=== PATIENT | male | born 1960 | race Caucasian/White ===

== ENCOUNTER 2019-03-09 12:17 | Inpatient (IN) ==
--- NOTE | 2019-03-09 12:24 | Emergency Department Note ---
ED Disposition Clinical Impression: Healthcare-associated pneumonia, Empyema Sepsis Qualifiers: Sepsis type: sepsis due to unspecified organism Sepsis acute organ dysfunction status: with acute organ dysfunction Severe sepsis acute organ dysfunction type: acute respiratory failure Acute respiratory failure type: unspecified Severe sepsis shock status: with septic shock Qualified Code(s): A41.9 - Sepsis, unspecified organism Acute respiratory failure Qualifiers: Respiratory failure complication: hypoxia and hypercapnia Qualified Code(s): J96.01 - Acute respiratory failure with hypoxia Disposition: Admitted As Inpatient Condition on Discharge: Critical - Critical Care Critical Care Time: Yes Attestation: On , the high probability of a clinically significant, sudden or life threatening deterioration of the following system(s) required my full and direct attention, intervention and personal management. The time I documented below is in addition to time spent performing reported procedures but includes the following listed in this critical care notation. Total Critical Care Time: 60 Vital system(s) involved:: Respiratory Failure, Shock (Septic) My critical care processes included: Assessment & monitoring of V/S, Initial and Re-exams, Data Review/Interpretation, Coordinating Care, Medication Orders and management, Documentation Medical Decision Making - Donn Inquiry Pt receiving controlled substance: No Vital Signs: 03/09/19 12:17 03/09/19 13:00 03/09/19 13:30 Temperature 97.7 F 99.6 F Temperature Source Oral Rectal Pulse Rate [Right] 147 H 150 H 145 H Respiratory Rate 26 H 30 H 25 H Blood Pressure [Right Arm] 136/46 L 132/93 H 118/86 Blood Pressure Mean [Right Arm] 76 106 96 Blood Pressure Source [Right Arm] Blood Pressure Position [Right Arm] 02 Sat by Pulse Oximetry 70 L 88 L 90 L Oxygen Delivery Method Room Air Nasal Cannula Non-Rebreather Oxygen Flow Rate (LPM) 3 03/09/19 13:51 03/09/19 14:01 03/09/19 14:23 Temperature Temperature Source Pulse Rate [Right] 142 H 137 H 128 H Respiratory Rate 22 Blood Pressure [Right Arm] 105/74 L 106/69 L 109/75 L Blood Pressure Mean [Right Arm] 84 81 86 Blood Pressure Source [Right Arm] Automatic Cuff Automatic Cuff Blood Pressure Position [Right Arm] Sitting Sitting 02 Sat by Pulse Oximetry 97 97 99 Oxygen Delivery Method BiPAP Room Air BiPAP Oxygen Flow Rate (LPM) 03/09/19 14:41 03/09/19 14:58 03/09/19 15:34 Temperature Temperature Source Pulse Rate [Right] 122 H 118 H 108 H Respiratory Rate 18 Blood Pressure [Right Arm] 125/71 95/63 L 100/64 L Blood Pressure Mean [Right Arm] 89 73 76 Blood Pressure Source [Right Arm] Automatic Cuff Automatic Cuff Blood Pressure Position [Right Arm] Sitting Sitting 02 Sat by Pulse Oximetry 99 98 100 Oxygen Delivery Method BiPAP BiPAP BiPAP Oxygen Flow Rate (LPM) 03/09/19 16:00 03/09/19 16:30 03/09/19 17:00 Temperature Temperature Source Pulse Rate [Right] 111 H 114 H 114 H Respiratory Rate 20 Blood Pressure [Right Arm] 98/67 L 83/58 L 93/57 L Blood Pressure Mean [Right Arm] 77 66 69 Blood Pressure Source [Right Arm] Automatic Cuff Blood Pressure Position [Right Arm] Sitting Sitting 02 Sat by Pulse Oximetry 99 98 99 Oxygen Delivery Method BiPAP Room Air BiPAP Oxygen Flow Rate (LPM) - Lab Data Lab Results 03/09/19 12:25: WBC 26.9 H*, RBC 5.51, Hgb 15.5, Hct 54.0 H, MCV 98.1 H, MCH 28.1, MCHC 28.7 L, RDW 16.3, Plt Count 474 H, MPV 8.8, Neut % (Auto) 89.2 H, Lymph % (Auto) 7.9 L, [place] % (Auto) 2.3, Eos % (Auto) 0.1, Baso % (Auto) 0.6, Neut # (Auto) 24.3 H, Lymph # (Auto) 2.1, [place] # (Auto) 0.6, Eos # (Auto) 0.0, Baso # (Auto) 0.2, Total Counted 100, Neutrophils % (Manual) 82 H, Band Neutrophils % 8.0, Lymphocytes % (Manual) 6 L, Monocytes % (Manual) 4, Platelet Estimate Slight increase, Anisocytosis 1+, Acanthocytes (Spur) 1+ 03/09/19 12:25: Sodium 141, Potassium 3.5, Chloride 98, Carbon Dioxide 24, Anion Gap 22.5 H, BUN 13, Creatinine 1.17, Estimated Creat Clear 82, Estimated GFR 64, Est GFR ( Amer) 77, Glucose 209 H, Calcium 9.3, Total Bilirubin 1.3 H, Direct Bilirubin 0.7 H, Indirect Bilirubin 0.6, AST 18, ALT 28, Alkaline Phosphatase 256 H, Troponin I 0.04, Total Protein 8.6 H, Albumin 2.0 L 03/09/19 12:25: Lactate 10.7 H 03/09/19 12:25: B-Natriuretic Peptide 3210 H 03/09/19 12:25: Influenza Type A Ag Negative, Influenza Type B Ag Negative 03/09/19 12:28: Specimen Source Left radial, O2 % 3l, ABG pH 7.18 L*, ABG pCO2 54.6 H, ABG pO2 58.7 L, ABG HCO3 20.0 L, ABG Total CO2 21.7 L, ABG O2 Saturation 82 L*, ABG Base Excess -8.3 L, Andry Test Acceptable 03/09/19 15:55: Troponin I 0.21 H Result diagrams: 03/09/19 12:25 03/09/19 12:25 Orders (Tests/Meds): ED MEDICATIONS Generic Name Dose Route Start Last Admin Trade Name Freq PRN Reason Stop Dose Admin Acetaminophen 650 mg 03/09/19 17:21 Acetaminophen 325mg Tab PO 04/08/19 17:20 Q4HP PRN As Needed for Fever or Pain Aspirin 81 mg 03/10/19 09:00 Aspirin 81mg Chewable Tablet PO 04/09/19 08:59 DAILY [facility] Cefepime HCl 2 gm/ Sodium 100 mls @ 200 mls/hr 03/09/19 21:00 Chloride IV 03/23/19 12:59 Q8H [facility] Protocol Levofloxacin/Dextrose 750 mg in 150 mls @ 100 mls/hr 03/10/19 13:00 Levofloxacin 750mg/150ml Premix IV 03/23/19 12:59 Q24H [facility] Protocol Vancomycin HCl 1,500 mg/ 250 mls @ 125 mls/hr 03/10/19 03:00 Sodium Chloride IV 03/23/19 14:59 Q12H [facility] Miscellaneous 1 each 03/09/19 17:21 Vancomycin Consult Request * 04/08/19 12:59 CONSULT PHARMACY [facility] Non-Formulary Medication 20 mg 03/10/19 09:00 Rivaroxaban [Xarelto 20mg Tablet*] PO 04/09/19 08:59 DAILY [facility] Non-Formulary Medication 40 mg 03/10/19 09:00 Valsartan [Valsartan 40mg Tablets] PO 04/09/19 08:59 DAILY [facility] Non-Formulary Medication 80 mg 03/09/19 21:00 Atorvastatin Calcium [Atorvastatin 80mg Tab] PO 04/08/19 20:59 HS [facility] Ondansetron HCl 4 mg 03/09/19 17:21 Zofran 4mg/2ml Vial IV 04/08/19 17:20 Q8HP PRN Nausea Discontinued Medications Generic Name Dose Route Start Last Admin Trade Name Freq PRN Reason Stop Dose Admin Sodium Chloride 1,000 mls @ 999 mls/hr 03/09/19 12:30 03/09/19 13:00 Sod Chlor 0.9% 1000ml Bag IV 03/09/19 13:30 Not Given .Q1H1M [facility] Cefepime HCl 2 gm/ Sodium 100 mls @ 200 mls/hr 03/09/19 13:00 03/09/19 13:58 Chloride IV 03/23/19 12:59 200 mls/hr Q8H [facility] Administration Protocol Levofloxacin/Dextrose 750 mg in 150 mls @ 100 mls/hr 03/09/19 13:00 03/09/19 12:54 Levofloxacin 750mg/150ml Premix IV 03/23/19 12:59 100 mls/hr Q24H [facility] Administration Protocol Vancomycin HCl 1,500 mg/ 250 mls @ 125 mls/hr 03/09/19 15:00 03/09/19 15:10 Sodium Chloride IV 03/23/19 14:59 Not Given Q12H [facility] Sodium Chloride 2,590 mls @ 1,295 mls/hr 03/09/19 12:59 03/09/19 13:01 Sod Chlor 0.9% 1000ml Bag 30 ml/kg infuse over 2 hr (2590 ml) 03/09/19 14:58 1,295 mls/hr IV Administration .Q2H ONE Ioversol 70 ml 03/09/19 13:43 03/09/19 13:44 Rad-Optiray 350 100ml Vial IV 03/09/19 13:44 70 ml ONCE ONE Administration Protocol Methylprednisolone Sodium Succinate 125 mg 03/09/19 12:20 03/09/19 12:34 Solu-Medrol 125mg/2ml Vial IV 03/09/19 12:21 125 mg ONCE ONE Administration Miscellaneous 1 each 03/09/19 13:00 03/09/19 13:58 Vancomycin Consult Request * 04/08/19 12:59 1 each CONSULT PHARMACY [facility] Administration Sodium Chloride 50 ml 03/09/19 13:43 03/09/19 13:44 Rad-Ns 50ml Vial IV 03/09/19 13:44 50 ml ONCE ONE Administration Sodium Chloride 10 ml 03/09/19 13:43 03/09/19 13:44 Rad-Saline Flush 10ml Syringe IV 03/09/19 13:44 10 ml ONCE ONE Administration ORDERS Category Date Time Status Consult to Cardiology [CONS] Routine Cons 03/09/19 17:21 Active Basic Metabolic Panel AMLAB Lab 03/10/19 06:00 Ordered Complete Blood Count Auto Diff AMLAB Lab 03/10/19 06:00 Ordered Lactic Acid Follow Up (RFLX 1) Stat Lab 03/09/19 16:55 Received Troponin I Q3H Lab 03/09/19 18:30 Ordered Blood Culture Stat Micro 03/09/19 12:25 Received ABG PH Stat RT 03/09/19 13:14 Ordered Arterial Blood Gas Timed RT 03/09/19 21:00 Ordered CA echo doppler complete Routine Y 03/10/19 07:00 Ordered - Radiology Data #1 Image(s): Chest Image Reviewed: Yes I discussed the image results w/the radiologist Pneumonia in the left lung. Elevated right diaphragm, chronic, but worse than previous. Air density at the right diaphragm, unclear cause. Recommends CT chest, preferably CT angiogram if renal function will allow, otherwise CT chest without contrast. - ECG Data Tracing #1 EKG interpreted by Milton Cerda MD: Rhythm: sinus tachycardia Rate: 148 [place]: normal Ectopy: none Conduction: Incomplete right bundle branch block ST Segment Changes: Nonspecific T Wave Changes: none Q Waves: none No evidence of acute ischemia or injury - Physician Consults Physician Consulted: Abel - ICU at Time: 14:10 Reason -: Transfer to another facilty Comment/Response: No ICU beds available. Emergency department on diversion. Additional Consult: Calos - hospitalist [facility] Time: 14:34 Reason -: Transfer to another facilty Comment/Response: Feels patient is too complicated for their facility. [facility] ICU is full, they will put him on the wait list. Additional Consult: Chicho - ICU [facility] Time: 14:41 Reason -: Transfer to another facilty Comment/Response: Accepts patient, will be put on ICU waiting list. Other Consultation(s): Pantera - industrial custodian Stefano, states does not believe in wait-listing. Call back later to check on beds. Arlette . Accepts patient to wait list for ICU. - Reevaluation(s) Time: 13:55 Reevaluation #1: Patient feels better on BiPAP, respirations much easier. - Tissue Perfus/Sepsis Re-Eval Sepsis Re-Evaluation Performed: Yes Date Performed: 03/09/19 Time Performed: 15:55 Medical Decision Narrative: Family prefers for patient be transferred back to the [facility] if possible. [facility] contacted. They have no available beds. 4:25 PM: Unable to find a bed in [place] at a higher level of care. Wait lists at , [facility], and [place] all appear long and it may be quite some time before he gets a bed to be transferred. Discussed with Dr. Ahuja, who is on-call for service. He will admit the patient here pending transfer. Requests repeat arterial blood gas at 9 PM. Continue antibiotics. General Adult HPI - General Chief complaint: Chest Pain Stated complaint: soa, chest pain Time Seen by Provider: 03/09/19 12:30 - History of Present Illness HPI narrative: Complains of shortness of breath since last night. Has a cough without sputum production. Has anterior chest pain since last night. Swelling of both legs, left worse than right, which is chronic, but worsening. Not aware of any fever. Recently I admitted him from here to the [facility] in December for DVT and pulmonary emboli. He was discharged from that admission but says that he had to get readmitted for shortness of breath. Family says that he had pneumonia and congestive heart failure. It sounds as if he had to have a chest tube to drain a pleural effusion. He was discharged 2 to 3 weeks ago. Family states he is not eating and drinking well. Also states that he stopped taking his Lasix about a week ago because "he got tired of peeing on himself". - Related Data Home Medications Medication Instructions Recorded Confirmed Aspirin [Aspirin 81mg chewable 81 mg PO DAILY 03/09/19 03/09/19 tab] Atorvastatin Calcium [Atorvastatin 80 mg PO HS 03/09/19 03/09/19 80mg Tab] Furosemide [Lasix 40mg tab] 40 mg PO BID 03/09/19 03/09/19 Metoprolol Tartrate [Lopressor 50 mg PO BID 03/09/19 03/09/19 50mg tablet] Potassium Chloride [Micro-K 10mEq 10 meq PO BID 03/09/19 03/09/19 cap] Rivaroxaban [Xarelto 20mg Tablet*] 20 mg PO DAILY 03/09/19 03/09/19 Sennosides/Docusate Sodium 1 each PO NEEDED PRN 03/09/19 03/09/19 [Senna-S Laxative Tablet] Valsartan [Valsartan 40mg 40 mg PO DAILY 03/09/19 03/09/19 Tablets] Allergies Allergy/AdvReac Type Severity Reaction Status Date / Time No Known Allergies Allergy Verified 05/05/18 09:25 [facility] History - Hepatitis A Screen Attestation statement:: This patient has been screened for Hepatitis A risk factors. Medical History: Reports:: Diabetes Mellitus Type 2 Laterality Cases: Bilateral: Tonsillectomy - Social History Smoking Status: Current every day smoker Tobacco Type: cigarettes # Packs/Day (cigarettes): 1 Alcohol Intake: never Occupational Status: retired ROS Obtained: Yes All systems reviewed & no additional complaints - Constitutional Constitutional: Denies fever(s) - Cardiovascular Cardiovascular: Reports chest pain, Reports pedal edema - Respiratory Respiratory: Yes cough, Yes non-productive cough, Yes dyspnea Physical Exam - General General appearance: alert, in distress (Respiratory) - Head Head exam: atraumatic, normocephalic - Eye Eye exam: Present: normal appearance, EOMI - ENT ENT exam: Present: mucous membranes moist - Neck Neck exam: Present: normal inspection, trachea midline - Chest Chest inspection: Present: normal inspection - Respiratory Respiratory exam: Present: respiratory distress, accessory muscle use, other (Audible crackles) - Cardiovascular Cardiovascular exam: Present: normal rhythm, tachycardia - Abdominal Exam Abdominal exam: Present: soft. Absent: distention, tenderness - Extremities Exam Extremities exam: Present: normal capillary refill, other (2+ pitting edema left lower leg, 1+ pitting edema right) - Neurological Exam Neurological exam: Present: alert - Psychiatric Psychiatric exam: Present: anxious - Skin Skin exam: Present: warm, dry
[2019-03-09 12:32] LABS: ABG Base Excess -8.3 mmol/L (-2.4-2.3); ABG Oxygen Saturation 82 % (90-100); ABG PO2 58.7 mmhg (80-100); ABG TCO2 21.7 mmhg (23-27)
[2019-03-09 12:35] LABS: Allen's Test ACCEPTABLE; Oxygen 3l %
[2019-03-09 12:36] LABS: ABG PCO2 54.6 mmhg (35.0-45.0); ABG PH 7.18 mmol/L (7.35-7.45)
[2019-03-09 12:39] LABS: Basophils # 0.2 K/mm3 (0-0.2); Basophils % 0.6 % (0.1-2.0); Eosinophils % 0.1 % (0.1-12.0); Hemoglobin 15.5 g/dL (14.1-18.0); Lymphocytes # 2.1 K/mm3 (0.7-4.5); Lymphocytes % 7.9 % (10-50); Mean Corpuscular HGB Conc 28.7 g/dL (31.8-35.4); Mean Corpuscular Volume 98.1 fl (80-94); Mean Platelet Volume 8.8 fl (7.4-10.4); Monocytes # 0.6 K/mm3 (0.1-1.0); Monocytes % 2.3 % (1.7-9.3); Neutrophils # 24.3 K/mm3 (1.8-7.8); Neutrophils % 89.2 % (37.0-80.0); Platelet Count 474 K/mm3 (142-424); Red Blood Count 5.51 M/mm3 (4.60-6.20); Red Cell Distribution Width 16.3 % (11.5-17.5)
[2019-03-09 12:45] LABS: White Blood Count 26.9 K/mm3 (4.8-10.8)
[2019-03-09 12:50] LABS: Lymphocytes % 6 % (10-50); Monocytes % 4 % (2-9); Neutrophils % 82 % (42-76); Total Cells Counted 100
[2019-03-09 12:51] LABS: Anisocytosis 1+
[2019-03-09 12:53] LABS: Anion Gap 22.5 mEq/L (5-15); Bilirubin,Direct 0.7 mg/dL (0.0-0.2); Bilirubin,Indirect 0.6 mg/dL (0.0-0.9); Bilirubin,Total 1.3 mg/dL (0.2-1.0); Calcium 9.3 mg/dL (8.5-10.1); Total Protein,Serum 8.6 gm/dL (6.4-8.2)
--- NOTE | 2019-03-09 14:10 | Electrocardiograph Report ---
APPROVED REPORT Exam: Resting ECG HR:148 bpm ECG Measurements Heart Rate 148 AXES SC 124 P 44 QRSd 104 QRS 135 QT 274 T36 QTc 430 <Conclusion> Sinus tachycardia Possible Left atrial enlargement Lateral infarct, age undetermined Abnormal ECG Electronically signed by : Balta Borjas, 03/09/2019 14:09:47
[2019-03-09 20:25] LABS: ABG Base Excess -2.2 mmol/L (-2.4-2.3); ABG HCO3 22.3 mmhg (22.0-26.0); ABG Oxygen Saturation 99 % (90-100); ABG PCO2 35.4 mmhg (35.0-45.0); ABG PH 7.42 mmol/L (7.35-7.45); ABG PO2 164.7 mmhg (80-100); ABG TCO2 23.4 mmhg (23-27)
[2019-03-09 20:26] LABS: Allen's Test Y; Oxygen 90 %
--- NOTE | 2019-03-09 21:03 | H&P/Discharge Summary ---
General - General Admission date:: 03/09/19 Discharge date: 03/10/19 *Admission Date: 03/09/19 *Chief complaint: sob *History of present illness: this wm presented to the ed with sob-mplains of shortness of breath since last night. Has a cough without sputum production. Has anterior chest pain since last night. Swelling of both legs, left worse than right, which is chronic, but worsening. Not aware of any fever. Recently I admitted him from here to the in December for DVT and pulmonary emboli. He was discharged from that admission but says that he had to get readmitted for shortness of breath. Family says that he had pneumonia and congestive heart failure. It sounds as if he had to have a chest tube to drain a pleural effusion. He was discharged 2 to 3 weeks ago. Family states he is no t eating and drinking well. Also states that he stopped taking his Lasix about a week ago because "he got tired of peeing on himself". pt with hcap and severe sepsis with organ dysfunction with septic shock- pt was admitted with ivf and abx with cpap [facility] History I have reviewed the patient's past medical history: Yes Medical History: Reports:: Diabetes Mellitus Type 2 *Have you ever received a pneumonia vaccine?: No *Have you received a flu vaccine this season?: Yes Laterality Cases: Bilateral: Tonsillectomy - *Social History Smoking Status: Current every day smoker Tobacco Type: cigarettes # Packs/Day (cigarettes): 1 Alcohol Intake: never *Occupational Status:: retired *Travel in the last 8 weeks: None Family Hx:: Unable to obtain Review of Systems - Review of Systems Review of systems:: pertinent systems reviewed and negative unless documented below - Constitutional Reports weakness, Denies fever(s) - Eyes Denies change in vision - ENT Reports dry mouth - *Cardiovascular Reports shortness of breath, Denies chest pain with activity - *Respiratory Reports cough, Denies coughing up blood - *Gastrointestinal Denies abdominal pain, Denies vomiting - *Genitourinary Denies blood in urine - *Musculoskeletal Denies joint pain, Denies neck pain - Integumentary/Breasts Denies rash - *Neurologic Denies seizure-like activity - Psychiatric Denies anxiety Exam Vital signs and Labs for Last 24 Hours: Temp Pulse Resp BP Pulse Ox 97.7 F 113 H 28 H 116/76 95 03/09/19 20:35 03/09/19 20:35 03/09/19 20:35 03/09/19 20:35 03/09/19 20:35 Laboratory Results - last 24 hr 03/09/19 12:25: WBC 26.9 H*, RBC 5.51, Hgb 15.5, Hct 54.0 H, MCV 98.1 H, MCH 28.1, MCHC 28.7 L, RDW 16.3, Plt Count 474 H, MPV 8.8, Neut % (Auto) 89.2 H, Lymph % (Auto) 7.9 L, Lea % (Auto) 2.3, Eos % (Auto) 0.1, Baso % (Auto) 0.6, Neut # (Auto) 24.3 H, Lymph # (Auto) 2.1, Lea # (Auto) 0.6, Eos # (Auto) 0.0, Baso # (Auto) 0.2, Total Counted 100, Neutrophils % (Manual) 82 H, Band Neutrophils % 8.0, Lymphocytes % (Manual) 6 L, Monocytes % (Manual) 4, Platelet Estimate Slight increase, Anisocytosis 1+, Acanthocytes (Spur) 1+ 03/09/19 12:25: Sodium 141, Potassium 3.5, Chloride 98, Carbon Dioxide 24, Anion Gap 22.5 H, BUN 13, Creatinine 1.17, Estimated Creat Clear 82, Estimated GFR 64, Est GFR ( Amer) 77, Glucose 209 H, Calcium 9.3, Total Bilirubin 1.3 H, Direct Bilirubin 0.7 H, Indirect Bilirubin 0.6, AST 18, ALT 28, Alkaline Phosphatase 256 H, Troponin I 0.04, Total Protein 8.6 H, Albumin 2.0 L 03/09/19 12:25: Lactate 10.7 H 03/09/19 12:25: B-Natriuretic Peptide 3210 H 03/09/19 12:25: Influenza Type A Ag Negative, Influenza Type B Ag Negative 03/09/19 12:28: Specimen Source Left radial, O2 % 3l, ABG pH 7.18 L*, ABG pCO2 54.6 H, ABG pO2 58.7 L, ABG HCO3 20.0 L, ABG Total CO2 21.7 L, ABG O2 Saturation 82 L*, ABG Base Excess -8.3 L, Andry Test Acceptable 03/09/19 15:55: Troponin I 0.21 H 03/09/19 16:55: Lactate 3.6 H 03/09/19 18:40: Troponin I 0.61 H 03/09/19 19:10: Lactate 2.9 H 03/09/19 20:24: Specimen Source R/r, O2 % 90, ABG pH 7.42, ABG pCO2 35.4, ABG pO2 164.7 H, ABG HCO3 22.3, ABG Total CO2 23.4, ABG O2 Saturation 99, ABG Base Excess -2.2, Andry Test Y, Vent Rate 22 I & O for Last 24 hours: Intake & Output 03/07/19 03/08/19 03/09/19 03/10/19 11:59 11:59 11:59 11:59 Intake Total 3554 / 3554 Output Total 285 / 285 Balance 3269 / 3269 Weight 178 lb - Constitutional no acute distress, thin - *Routine HEENT Exam Head: Present: normocephalic Eye: Present: EOMI, PERRL ENT: Present: mucous membranes dry - *Routine Neck Exam Absent: JVD - *Routine Respiratory Exam Present: decreased breath sounds, rhonchi - *Routine Cardiovascular Exam Present: RRR, murmur, S4 - *Routine Abdominal Exam Present: soft - *Routine Extremities Exam Absent: calf tenderness - *Routine Skin Exam Present: intact - *Routine Neurological Exam Present: alert, oriented X3, CN II-XII intact - Routine Psychiatric Exam Present: unable to assess Hospital Course Hospital Course: pt has did better with ivf and pressor with abx and cpap - repeat abg was improved and responded to fluids - pt will need transfer to [facility] to sig illness - he does get care [place] but no beds were available - he had elevated troponin but no acute ekg changes - pt had did well and was tiring with required cpap and increased rr - discussed with hospalist [facility] and will transfer by air and will need intubation by air care Results Labs on day of discharge: Labs from last 24 hours 03/09/19 03/09/19 03/09/19 20:24 19:10 18:40 WBC RBC Hgb Hct MCV MCH MCHC RDW Plt Count MPV Neut % (Auto) Lymph % (Auto) Lea % (Auto) Eos % (Auto) Baso % (Auto) Neut # (Auto) Lymph # (Auto) Lea # (Auto) Eos # (Auto) Baso # (Auto) Total Counted Neutrophils % (Manual) Band Neutrophils % Lymphocytes % (Manual) Monocytes % (Manual) Platelet Estimate Anisocytosis Acanthocytes (Spur) Specimen Source R/r O2 % 90 ABG pH 7.42 ABG pCO2 35.4 ABG pO2 164.7 H ABG HCO3 22.3 ABG Total CO2 23.4 ABG O2 Saturation 99 ABG Base Excess -2.2 Andry Test Y Vent Rate 22 Sodium Potassium Chloride Carbon Dioxide Anion Gap BUN Creatinine Estimated Creat Clear Estimated GFR Est GFR ( Amer) Glucose Lactate 2.9 H Calcium Total Bilirubin Direct Bilirubin Indirect Bilirubin AST ALT Alkaline Phosphatase Troponin I 0.61 H B-Natriuretic Peptide Total Protein Albumin Influenza Type A Ag Influenza Type B Ag 03/09/19 03/09/19 03/09/19 16:55 15:55 12:28 WBC RBC Hgb Hct MCV MCH MCHC RDW Plt Count MPV Neut % (Auto) Lymph % (Auto) Lea % (Auto) Eos % (Auto) Baso % (Auto) Neut # (Auto) Lymph # (Auto) Lea # (Auto) Eos # (Auto) Baso # (Auto) Total Counted Neutrophils % (Manual) Band Neutrophils % Lymphocytes % (Manual) Monocytes % (Manual) Platelet Estimate Anisocytosis Acanthocytes (Spur) Specimen Source Left radial O2 % 3l ABG pH 7.18 L* ABG pCO2 54.6 H ABG pO2 58.7 L ABG HCO3 20.0 L ABG Total CO2 21.7 L ABG O2 Saturation 82 L* ABG Base Excess -8.3 L Andry Test Acceptable Vent Rate Sodium Potassium Chloride Carbon Dioxide Anion Gap BUN Creatinine Estimated Creat Clear Estimated GFR Est GFR ( Amer) Glucose Lactate 3.6 H Calcium Total Bilirubin Direct Bilirubin Indirect Bilirubin AST ALT Alkaline Phosphatase Troponin I 0.21 H B-Natriuretic Peptide Total Protein Albumin Influenza Type A Ag Influenza Type B Ag 03/09/19 03/09/19 03/09/19 12:25 12:25 12:25 WBC RBC Hgb Hct MCV MCH MCHC RDW Plt Count MPV Neut % (Auto) Lymph % (Auto) Lea % (Auto) Eos % (Auto) Baso % (Auto) Neut # (Auto) Lymph # (Auto) Lea # (Auto) Eos # (Auto) Baso # (Auto) Total Counted Neutrophils % (Manual) Band Neutrophils % Lymphocytes % (Manual) Monocytes % (Manual) Platelet Estimate Anisocytosis Acanthocytes (Spur) Specimen Source O2 % ABG pH ABG pCO2 ABG pO2 ABG HCO3 ABG Total CO2 ABG O2 Saturation ABG Base Excess Andry Test Vent Rate Sodium Potassium Chloride Carbon Dioxide Anion Gap BUN Creatinine Estimated Creat Clear Estimated GFR Est GFR ( Amer) Glucose Lactate 10.7 H Calcium Total Bilirubin Direct Bilirubin Indirect Bilirubin AST ALT Alkaline Phosphatase Troponin I B-Natriuretic Peptide 3210 H Total Protein Albumin Influenza Type A Ag Negative Influenza Type B Ag Negative 03/09/19 03/09/19 12:25 12:25 WBC 26.9 H* RBC 5.51 Hgb 15.5 Hct 54.0 H MCV 98.1 H MCH 28.1 MCHC 28.7 L RDW 16.3 Plt Count 474 H MPV 8.8 Neut % (Auto) 89.2 H Lymph % (Auto) 7.9 L Lea % (Auto) 2.3 Eos % (Auto) 0.1 Baso % (Auto) 0.6 Neut # (Auto) 24.3 H Lymph # (Auto) 2.1 Lea # (Auto) 0.6 Eos # (Auto) 0.0 Baso # (Auto) 0.2 Total Counted 100 Neutrophils % (Manual) 82 H Band Neutrophils % 8.0 Lymphocytes % (Manual) 6 L Monocytes % (Manual) 4 Platelet Estimate Slight increase Anisocytosis 1+ Acanthocytes (Spur) 1+ Specimen Source O2 % ABG pH ABG pCO2 ABG pO2 ABG HCO3 ABG Total CO2 ABG O2 Saturation ABG Base Excess Andry Test Vent Rate Sodium 141 Potassium 3.5 Chloride 98 Carbon Dioxide 24 Anion Gap 22.5 H BUN 13 Creatinine 1.17 Estimated Creat Clear 82 Estimated GFR 64 Est GFR ( Amer) 77 Glucose 209 H Lactate Calcium 9.3 Total Bilirubin 1.3 H Direct Bilirubin 0.7 H Indirect Bilirubin 0.6 AST 18 ALT 28 Alkaline Phosphatase 256 H Troponin I 0.04 B-Natriuretic Peptide Total Protein 8.6 H Albumin 2.0 L Influenza Type A Ag Influenza Type B Ag DS: Diagnosis - Discharge Diagnosis (1) Severe sepsis with acute organ dysfunction Status: Acute (2) Acute respiratory failure Status: Acute (3) Empyema Status: Acute (4) Healthcare-associated pneumonia Status: Acute (5) Septic shock Status: Acute (6) Elevated brain natriuretic peptide (BNP) level Status: Acute (7) Elevated troponin Status: Acute Discharge Plan - Patient Discharge Instructions ACTIVITY: Continue current activity DIET: continue same diet Patient Instructions: DI for Pneumonia -- Adult, DI for Sepsis -- Adult - Follow up Plan Disposition: Xfer Short-Term Hosp Home Medications: Home Medications Medication Instructions Recorded Confirmed Type Aspirin [Aspirin 81mg chewable 81 mg PO DAILY 03/09/19 03/09/19 History tab] Atorvastatin Calcium [Atorvastatin 80 mg PO HS 03/09/19 03/09/19 History 80mg Tab] Furosemide [Lasix 40mg tab] 40 mg PO BID 03/09/19 03/09/19 History Metoprolol Tartrate [Lopressor 50 mg PO BID 03/09/19 03/09/19 History 50mg tablet] Potassium Chloride [Micro-K 10mEq 10 meq PO BID 03/09/19 03/09/19 History cap] Rivaroxaban [Xarelto 20mg Tablet*] 20 mg PO DAILY 03/09/19 03/09/19 History Sennosides/Docusate Sodium 1 each PO NEEDED PRN 03/09/19 03/09/19 History [Senna-S Laxative Tablet] Valsartan [Valsartan 40mg 40 mg PO DAILY 03/09/19 03/09/19 History Tablets] Prescriptions/Medication Reconciliation: Continued Aspirin [Aspirin 81mg chewable tab] 81 mg PO DAILY Atorvastatin Calcium [Atorvastatin 80mg Tab] 80 mg PO HS Rivaroxaban [Xarelto 20mg Tablet*] 20 mg PO DAILY Valsartan [Valsartan 40mg Tablets] 40 mg PO DAILY Discontinued Furosemide [Lasix 40mg tab] 40 mg PO BID Metoprolol Tartrate [Lopressor 50mg tablet] 50 mg PO BID Potassium Chloride [Micro-K 10mEq cap] 10 meq PO BID Sennosides/Docusate Sodium [Senna-S Laxative Tablet] 1 each PO NEEDED PRN PRN Reason: Constipation - Problem Reconciliation Problems Reviewed?: Yes
[2019-03-10 01:01] LABS: ABG Base Excess -0.5 mmol/L (-2.4-2.3); ABG HCO3 25.1 mmhg (22.0-26.0); ABG Oxygen Saturation 93 % (90-100); ABG PH 7.35 mmol/L (7.35-7.45); ABG PO2 69.9 mmhg (80-100); ABG TCO2 26.6 mmhg (23-27)
[2019-03-10 01:04] LABS: Allen's Test Y; Oxygen 100 %
== END 2019-03-10 03:56 | disposition short-term general hospital (02) | DRG 871 ==
LOC: ER 12:17 → 2ND 17:02
PROVIDERS: ADMIT Emergency Medicine; ATTEND Emergency Medicine
CPT/HCPCS: 36415; 71010; 71045; 71275; 80048; 80076; 82803; 83605; 83880; 84484; 85007; 85025; 87040; 87077; 87275; 87276; 93005; 94660; 94760; 96365; 96366; 96367; 96375; 99285; J1956; J3370; Q9967